=== PATIENT | female | born 1970 | race Caucasian/White ===

== ENCOUNTER 2018-02-02 10:07 | Emergency (ER) | payer MEDICARE, MEDICAID | END 2018-02-02 11:24 | disposition home or self-care (01) | LOC: ERS 10:07 | DX: L03.115 Cellulitis of right lower limb (principal); L03.116 Cellulitis of left lower limb; Z71.6 Tobacco abuse counseling; E11.9 Type 2 diabetes mellitus without complications; I10 Essential (primary) hypertension; J45.909 Unspecified asthma, uncomplicated; F31.9 Bipolar disorder, unspecified; F25.9 Schizoaffective disorder, unspecified; F17.210 Nicotine dependence, cigarettes, uncomplicated | CPT/HCPCS: 99406 ==

== ENCOUNTER 2018-02-02 20:51 | Emergency (ER) | payer MEDICARE, MEDICAID | END 2018-02-02 21:26 | disposition home or self-care (01) | LOC: ERS 20:51 | DX: F41.9 Anxiety disorder, unspecified (principal); F15.10 Other stimulant abuse, uncomplicated; L03.115 Cellulitis of right lower limb; E11.9 Type 2 diabetes mellitus without complications; I10 Essential (primary) hypertension; J45.909 Unspecified asthma, uncomplicated; F31.9 Bipolar disorder, unspecified; F25.9 Schizoaffective disorder, unspecified; F17.210 Nicotine dependence, cigarettes, uncomplicated; Z79.899 Other long term (current) drug therapy | CPT/HCPCS: 93005 ==

== ENCOUNTER 2018-02-04 15:14 | Inpatient (IN) | payer MEDICARE, MEDICAID ==
[2018-02-04] MEDS ORDERED: Piperacillin/Tazobactam 4.5 GM VIAL ONE (15:50)
[2018-02-04] MEDS ORDERED: Sodium Chloride 0.9% 100 ML ONE (15:50)
[2018-02-04 15:58] LABS: Actual Bicarbonate (HCO3a) 23.5 mEq/L (22-28); Analyzer IN Cardio ER; Base Excess (BEa) -0.7 mEq/L (-2.0 to +3.0); CO2 Tension 37.2 mmHg (35.0-45.0); Calcium, Ionized 1.06 mmol/L (1.12-1.30); Carboxyhemoglobin (COHb) 1.1 gm% (0.0-3.0); Hemoglobin (Hb) 11.5 g/dL (12.0-16.0); Potassium - ABG Lab 3.45 mmol/L (3.70-5.30); pH, Arterial 7.42 (7.35-7.45)
[2018-02-04 16:11] LABS: #Lymphocytes 1.3 thou/uL (1.20-3.40); #Monocytes 0.4 thou/uL (0.11-0.59); #Neutrophils 13.8 thou/uL (1.40-6.50); %Basophils 0.1 % (0.0-1.0); %Eosinophils 0.1 % (0.0-10.0); %Lymphocytes 8.5 % (21.0-51.0); %Monocytes 2.3 % (0.0-10.0); Mean Corpuscular HGB CONC 32.5 g/dL (32.0-36.0); Mean Corpuscular Hemoglobin 28.8 pg (27.0-31.0); Mean Corpuscular Volume 88.7 fL (78.0-98.0); Mean Platelet Volume 8.5 fL (7.4-10.4); Platelet Count 226 thou/uL (130-400); RBC Distribution Width 13.8 % (11.5-14.5); Red Blood Cell (RBC) Count 3.82 mill/uL (4.20-5.40); White Blood Cell (WBC) Count 15.6 thou/uL (4.8-10.8)
[2018-02-04 16:34] LABS: ALT (SGPT) 43 U/L (8-55); AST (SGOT) 62 U/L (5-34); Alkaline Phosphatase 88 U/L (40-150); Anion Gap 11 mmol/L (10-20); BUN (Urea Nitrogen) 12 mg/dL (7.0-18.7); Bilirubin, Total 0.5 mg/dL (0.2-1.2); Calc. Creatinine Clearance 0 mL/min (70-130); Calcium 8.1 mg/dL (7.8-10.44); Carbon Dioxide 23 mmol/L (22-29); Chloride 107 mmol/L (98-107); Estimated GFR-MDRD 67; Glucose 129 mg/dL (70-105); Potassium 3.6 mmol/L (3.5-5.1); Sodium 137 mmol/L (136-145)
--- NOTE | 2018-02-04 16:40 | RAD ---
CHEST ONE VIEW: 02/04/18 HISTORY: Dyspnea. FINDINGS: No comparison. Right margin of the cardiac silhouette is predominantly obscured by parenchymal opacity that may repr esent a collapsed right lower lobe. Lung markings are not well seen along the lateral aspect of the r ight lower chest. Left lung is somewhat hyperinflated. The engine monitor leads overlie the chest. IMPRESSION: Right lower lobe collapse. Cause not evident. Possible right pneumothorax. Left lateral decubitus views pending for further evaluation. Findings were called to Dr. Rodriguez in the Emergency Department at 1624 hours. Code CR POS: [facility]
[2018-02-04] MEDS ORDERED: ISOVUE-370 76%-LOCM 1 ML ONE (17:03)
--- NOTE | 2018-02-04 17:18 | RAD ---
SINGLE VIEW CHEST LEFT LATERAL DECUBITUS VIEWS 02/04/18 CLINICAL HISTORY: History of dyspnea. Abnormality on preceding chest radiograph. FINDINGS: Decubitus view in a left lateral position does not reveal evidence of a right sided pneumothorax. The re is patchy density at the right lower lung zone. Left lung is incompletely assessed on the basis of this exam. There is accentuation of the cardiomediastinal silhouette and of the pulmonary vasculatur e due to positioning. IMPRESSION: No discrete right pneumothorax. Right basilar patchy opacity which may relate to atelectasis or pneumonia. Recommend continued follow up. POS: [facility]
[2018-02-04 17:21] LABS: O2 Tension (PaO2) 53.8 mmHg (80.0-100.0); Puncture Site LRA
[2018-02-04 17:49] LABS: Bilirubin Small (Negative); Blood, Urine Negative (Negative); Clarity CLEAR (Clear); Glucose, Urine (Dipstick) Negative (Negative); Leukocyte Small (Negative); Nitrite Negative (Negative); Protein, Urine (Dipstick) 30 mg/dL (Neg-Trace); Specific Gravity, Urine 1.025 (1.002-1.036)
[2018-02-04 17:52] LABS: Bacteria/HPF None Seen HPF (None Seen); Hyaline Casts/LPF 4-6 HYALINE CAST LPF (0-3 Hyaline); Pathc Cast-AUWi Flag 1.45 (0-2.49); RBC/HPF 0-3 HPF (0-3)
[2018-02-04] MEDS ORDERED: Norepinephrine 8 MG/0.9% NS 250 ML ONE (18:39)
[2018-02-04] MEDS ORDERED: Water For Inject, Bacteriostat 30 ML ONE (18:39)
--- NOTE | 2018-02-04 19:14 | RAD ---
SINGLE VIEW OF THE CHEST: 02/04/18 COMPARISON: 02/04/18 HISTORY: Central line placement. FINDINGS: Single view of the chest shows a normal sized cardiomediastinal silhouette. A right IJ central venous catheter is seen with its tip at the atriocaval junction. There is opacity in the inferior aspect of the right thorax which could represent atelectasis of the right lower lobe. No pneumothorax is seen. IMPRESSION: 1. Status post central line placement without evidence of complication. 2. Right basilar atelectasis versus pleural effusion. POS: [facility]
[2018-02-04] MEDS ORDERED: Midazolam HCl 5 mg/ml Vial ONE (19:19)
[2018-02-04] MEDS ORDERED: Acetaminophen 650 MG Suppository PR PRN (19:19)
[2018-02-04] MEDS ORDERED: Norepinephrine 8 MG/0.9% NS 250 ML IVPB PRN (19:21)
[2018-02-04] MEDS ORDERED: CCU Electrolyte Replacement 1 EACH IVPB SCH (19:21)
[2018-02-04 19:26] LABS: Amphetamine Not Detected (NotDetected); Barbiturates Screen Not Detected (NotDetected); Benzodiazepine Screen Not Detected (NotDetected); Cocaine Metabolite Screen Not Detected (NotDetected); Medtox Control Line Valid? VALID (VALID); Medtox Reader # READER 4; Methadone Not Detected (NotDetected); Methamphetamine Not Detected (NotDetected); Opiate Screen Not Detected (NotDetected); Oxycodone Screen Not Detected (NotDetected); Phencyclidine (PCP) Not Detected (NotDetected); THC/Cannabinoid Screen Not Detected (NotDetected); Tricyclic Screen Not Detected (NotDetected)
[2018-02-04] MEDS ORDERED: Ventilator Sedation Protocol 1 EACH FS SCH (19:30)
[2018-02-04] MEDS ORDERED: Sodium Chloride 0.9% 2,000 ML IV SCH (19:30)
--- NOTE | 2018-02-04 19:48 | CT ---
CT OF THE BRAIN WITHOUT CONTRAST: 02/04/18 COMPARISON: None. TECHNIQUE: Multiple contiguous axial images were obtained in a CT of the brain without contrast. FINDINGS: The brain is normal in morphology and attenuation without focal lesions or confluent areas of infarct ion. There is no evidence of hydrocephalus, intracranial hemorrhage, or extra-axial fluid collections . The calvarium and overlying soft tissues are unremarkable. The visualized paranasal sinuses and masto id air cells are well aerated. IMPRESSION: No evidence of acute intracranial abnormality. POS: [facility]
[2018-02-04] MEDS ORDERED: Morphine 2 MG/ML SYRINGE SLOW IVP PRN (19:51)
[2018-02-04] MEDS ORDERED: DISCONTINUE PREVIOUS NARCOTIC PAIN MEDICATIONS AND BENZODIAZEPINES FS SCH (19:51)
[2018-02-04] MEDS ORDERED: Fentanyl BOLUS 250 ML IVPB PRN (19:51)
[2018-02-04] MEDS ORDERED: Propofol BOLUS 1,000 MG/100 ML VIAL IV PRN (19:51)
[2018-02-04] MEDS ORDERED: Magnesium Oxide 400 MG TAB PO PRN ×2 (19:52)
[2018-02-04] MEDS ORDERED: CCU ELECTROLYTE REPLACEMENT PROTOCOL FS PRN (19:52)
[2018-02-04] MEDS ORDERED: Potassium Phosphate 9 MMOL in Sodium Chloride 0.9% 100 ML IVPB PRN (19:52)
[2018-02-04] MEDS ORDERED: Potassium Phosphate 12 MMOL in Sodium Chloride 0.9% 250 ML 250 ML IV PRN (19:52)
[2018-02-04] MEDS ORDERED: Potassium Chloride 40 MEQ in Premix Bag 1 BAG IVPB PRN (19:52)
[2018-02-04] MEDS ORDERED: Potassium Phosphate 15 MMOL in Sodium Chloride 0.9% 250 ML 250 ML IV PRN (19:52)
[2018-02-04] MEDS ORDERED: Potassium Chloride 20 MEQ TAB PO PRN (19:52)
[2018-02-04] MEDS ORDERED: Magnesium 2 GM/NS 0.9% 100 ML 2 GM in Premix Bag 1 BAG IVPB PRN (19:52)
[2018-02-04] MEDS ORDERED: Potassium Chloride 40 MEQ in Sodium Chloride 0.9% 250 ML 250 ML IVPB PRN (19:52)
--- NOTE | 2018-02-04 20:18 | CT ---
CTA OF THE CHEST WITH CONTRAST: 02/04/18 COMPARISON: None. HISTORY: Bodyaches and fever for two days. History of drug use. TECHNIQUE: Multiple contiguous axial images were obtained in a CTA of the chest with contrast for pulmonary embo lis protocol. 3D oblique MIP reformats and direct coronal reformats were performed. IMPRESSION: The pulmonary arteries are well opacified without filling defects to suggest pulmonary emboli. The h eart is normal in size. No hilar or mediastinal lymphadenopathy are seen. Consolidation is seen in the right middle and lower lobes. No pleural effusion is seen. Air space opa cities are also seen in the right upper lobe. The patient is status post cholecystectomy. The visuali zed subdiaphragmatic structures are unremarkable. Degenerative changes are seen in the spine. The vis ualized chest wall soft tissues are unremarkable. IMPRESSION: 1. No evidence of pulmonary thromboembolism. 2. Multifocal right sided pneumonia. POS: [facility]
[2018-02-04 20:34] LABS: Actual Bicarbonate (HCO3a) 22.4 mEq/L (22-28); Analyzer IN Cardio ER; Base Excess (BEa) -3.2 mEq/L (-2.0 to +3.0); CO2 Tension 42.4 mmHg (35.0-45.0); Calcium, Ionized 1.05 mmol/L (1.12-1.30); Carboxyhemoglobin (COHb) 0.5 gm% (0.0-3.0); Hemoglobin (Hb) 11.6 g/dL (12.0-16.0); O2 Tension (PaO2) 73.7 mmHg (80.0-100.0); Potassium - ABG Lab 3.52 mmol/L (3.70-5.30); pH, Arterial 7.34 (7.35-7.45)
[2018-02-04 20:39] LABS: Puncture Site RRA
--- NOTE | 2018-02-04 20:52 | RAD ---
PORTABLE CHEST ONE VIEW: 02/04/18 HISTORY: 47-year-old female with history of sepsis. Right jugulovenous catheter in place with the tip extending into the distal superior vena cava. Endot jenise tube is in place in satisfactory position with the tip above the level of the [place]. Abnorma l opacity changes within the right mid and lower lung zones with some confluence and what appears to be some right sided volume loss. Patchy increased markings in the left chest. No evidence for pneumot horax. IMPRESSION: Abnormal opacity changes in the right chest with some volume loss. Pneumonia and/or atelectasis are c ertainly considered. Bilateral vascular congestion. Continued short term followup. POS: [facility]
--- NOTE | 2018-02-04 21:05 | HP ---
PRIMARY CARE PHYSICIAN: Unknown. CHIEF COMPLAINT: "Couldn't get out of bed." HISTORY OF PRESENT ILLNESS: This is a 47-year-old female with history of hypertension, GERD, fibromyalgia, mental health disorder per chart review of bipolar and schizoaffective disorders, methamphetamine use with last use approximately reported as 3 weeks ago, who presents to the emergency room complaining that she felt weak. The patient reports that today she had pain everywhere, denies any precipitating factors or relieving factors. She reports over the past couple of weeks that she has been coughing productive of a white fluid. She denies any nausea, vomiting, fever, chills, diarrhea, or urine changes. She was seen in the emergency room 2 days ago with the concern for possible methamphetamine withdrawal. Per the chart review, she stopped using methamphetamine about 3 weeks ago and she had been experiencing fear and anxiety. The patient had been seen in the emergency room also for possible skin infection, where antibiotics were prescribed but not filled. When asked further about the history, the patient requested that I stopped asking her any further questions. All remaining history is unobtainable. The patient is febrile, hypotensive in the emergency room with an abnormal chest x-ray, diagnosed with septic shock secondary to pneumonia. She has received 2 L of normal saline, 750 mg of Levaquin, 1 g of vancomycin, 4.5 g of Zosyn, and hospitalist called for admission. The emergency room doctor talked with Pulmonology on-call, who also requested 40 mg of methylprednisolone. ALLERGIES: NO KNOWN DRUG ALLERGIES. CURRENT MEDICATIONS: Unobtainable from the patient. Per chart review; 1. Amlodipine. 2. Gabapentin. 3. Omeprazole. 4. Clonazepam. 5. Ibuprofen. 6. Olanzapine. 7. Tramadol. 8. Losartan. However, I am unable to verify these. PAST SURGICAL HISTORY: Per chart review; 1. Cholecystectomy. 2. . 3. Facial reconstruction. 4. Hysterectomy. PAST MEDICAL HISTORY - Per chart review: 1. Hypertension 2. Fibromyalgia 3. Mental health disorders - listed as bipolar disorder and schizoaffective disorder 4. Per ER physician - DVT 5. Asthma 6. methamphetamine use SOCIAL HISTORY: The patient lives in a homeless fpc here in [place]. She reports her dad Magdy Lyons in [place], phone #[phone]. He is her surrogate decision maker. She uses tobacco one-half per day. Denies any alcohol, and reports she last smoked methamphetamine 3 weeks ago. REVIEW OF SYSTEMS: Unobtainable and only as noted above. PHYSICAL EXAMINATION: MOST RECENT VITAL SIGNS: Blood pressure 86/65, pulse 98, respirations 18, sats 97% on face mask. GENERAL: The patient will open her eyes. She appears agitated, she is not in acute distress. HEENT: Her pupils are equal and round. Tympanic membranes are translucent. Oral mucosa is dry and pink. NECK: Supple, nontender. LYMPHATICS: No palpable cervical or supraclavicular lymphadenopathy. LUNGS: Clear to auscultation. Fair air movement. No audible wheezing, rhonchi , or rales. HEART: Normal S1 and S2. Regular rate and rhythm. No audible murmurs. ABDOMEN: Soft with present bowel sounds. Nontender, nondistended. EXTREMITIES: No pitting edema, clubbing, or cyanosis. SKIN: Multiple areas of hypopigmentation, some erythematous macules along her arms that she reports are all consistent with a prior history of scarring. PSYCHIATRIC: The patient's affect is blunted, she is intermittently requesting not to ask questions in a raised voice. Answering simple questions. LABORATORY DATA: CBC; white count 15.6, hemoglobin 11.0, hematocrit 33.8, platelets 226 with 89% neutrophils, 8.5% lymphocytes. ABG; pH of 7.42, pCO2 of 37, pO2 of 53, base excess -0.7 with a sat 88%, this is on 32% oxygen. Renal panel; sodium 137, potassium 3.6, chloride 107, bicarbonate 23, BUN 12, creatinine 0.9, glucose 129. AST 62, ALT 43, alkaline phosphatase 88. Total protein 6, albumin 3. Troponin 0.013. Urinalysis; small leukocyte esterase, 7 to 10 white blood cells, 4 to 6 squamous , 4 to 6 hyaline casts. Chest x-ray performed today shows central line placement, right basilar atelectasis versus pleural effusion with an opacity in the inferior aspect of the right thorax. Earlier chest x-ray shows no discrete pneumothorax. Right basilar patchy opacity, which may be atelectasis or pneumonia. Prior to this, chest x-ray showed right lower lobe collapse, possible pneumothorax with recommendation for a decubitus view. IMPRESSION: 1. Septic shock secondary to pneumonia. 2. History of methamphetamine use. 3. History of hypertension, currently hypotensive. 4. History of mental health disorders, unknown control. 5. History of fibromyalgia. PLAN: 1. Given the patient's ABG, appearance of x-ray, persistence of hypotension, recommend intubation. I reviewed this with the patient, who is tearful at first stating her mom after being intubated, however, the patient does not wish to and she does agree to intubation. I am concerned that within the next 12 hours that her condition is going to decompensate, which would be the middle of the night. The emergency room physician has agreed to intubate. Given the acute respiratory failure, with a report by the ER physician has a history of DVT, we will obtain a CT angiogram of the chest. 2. Continuing IV fluids, we will obtain a CVP to monitor progress as well as check in's and out's. Will order a 3rd liter of NS and then maintenance fluids. 3. Continuing broad-spectrum antibiotics with Levaquin, vancomycin and Zosyn. 4. Pressor support if needed. 5. Monitoring her renal function. 6. Contact will need to be made with the patient's father with the number listed above, who is her surrogate decision maker. 7. DVT prophylaxis with enoxaparin. 8. GI prophylaxis with famotidine. 9. Code status is full. Confirmed with the patient. 10. The patient is at high risk given age, comorbidities, and current presentation. Discussed with the patient concern of decompensation, the need for additional support, broad-spectrum antibiotics, and the plan of care. There were no questions or further needs at the end of evaluation. Job ID: [id number] [facility]
[2018-02-04] MEDS ORDERED: Propofol 1,000 MG/100 ML VIAL IV ONE (21:10)
[2018-02-04] MEDS ORDERED: Acetaminophen 650 MG in Premix Bag 1 BAG IVPB PRN (21:21)
[2018-02-04] MEDS ORDERED: Morphine 4 MG/ML VIAL ONE (22:04)
[2018-02-04] MEDS ORDERED: Lorazepam 2 MG/ML VIAL ONE (22:09)
--- NOTE | 2018-02-05 00:01 | RAD ---
KUB: 02/04/18 COMPARISON: None. HISTORY: NG tube placement. FINDINGS: A single view of the upper abdomen shows a nonspecific, nonobstructive bowel gas pattern. An NG tube is seen in the left upper quadrant of the abdomen, likely within the stomach. An inferior vena cava f ilter is seen. Cholecystectomy clips are seen. IMPRESSION: NG tube located in the stomach. POS: [facility]
[2018-02-05] MEDS: Famotidine/PF 20 mg/2ml Vial SLOW IVP SCH ×3 (00:31→21:20)
[2018-02-05] MEDS: Sodium Chloride 0.9% 1,000 ML IV SCH ×3 (00:41→11:55)
[2018-02-05] MEDS: Piperacillin/Tazobactam 3.375 GM in Sodium Chloride 0.9% 100 ML IVPB SCH ×4 (00:42→18:11)
[2018-02-05] MEDS: Propofol 1,000 MG/100 ML VIAL IV PRN ×4 (00:42→18:12)
[2018-02-05] MEDS: fentaNYL Citrate/PF 2,000 MCG in Sodium Chloride 0.9% 60 ML IV SCH ×2 (04:31→14:35)
[2018-02-05] MEDS: Vancomycin HCl 1 GM in Premix Bag 1 BAG IVPB SCH ×2 (05:14→17:32)
[2018-02-05 05:22] LABS: #Lymphocytes 0.7 thou/uL (1.20-3.40); #Monocytes 0.1 thou/uL (0.11-0.59); #Neutrophils 12.7 thou/uL (1.40-6.50); %Basophils 0.3 % (0.0-1.0); %Eosinophils 0.2 % (0.0-10.0); %Lymphocytes 5.2 % (21.0-51.0); %Neutrophils 93.5 % (42.0-75.0); Hemoglobin 10.7 g/dL (12.0-16.0); Mean Corpuscular HGB CONC 32.6 g/dL (32.0-36.0); Mean Corpuscular Hemoglobin 28.7 pg (27.0-31.0); Mean Corpuscular Volume 88.1 fL (78.0-98.0); Mean Platelet Volume 8.4 fL (7.4-10.4); Platelet Count 241 thou/uL (130-400); RBC Distribution Width 13.7 % (11.5-14.5); Red Blood Cell (RBC) Count 3.73 mill/uL (4.20-5.40); White Blood Cell (WBC) Count 13.6 thou/uL (4.8-10.8)
[2018-02-05 05:49] LABS: Anion Gap 12 mmol/L (10-20); BUN (Urea Nitrogen) 11 mg/dL (7.0-18.7); Calc. Creatinine Clearance 137 mL/min (70-130); Calcium 8.1 mg/dL (7.8-10.44); Carbon Dioxide 22 mmol/L (22-29); Chloride 112 mmol/L (98-107); Estimated GFR-MDRD 76; Glucose 184 mg/dL (70-105); Potassium 3.8 mmol/L (3.5-5.1); Sodium 142 mmol/L (136-145)
[2018-02-05 07:02] LABS: Actual Bicarbonate (HCO3a) 20.8 mEq/L (22-28); Base Excess (BEa) -3.2 mEq/L (-2.0 to +3.0); CO2 Tension 33.3 mmHg (35.0-45.0); Calcium, Ionized 1.09 mmol/L (1.12-1.30); Carboxyhemoglobin (COHb) 1.1 gm% (0.0-3.0); Hemoglobin (Hb) 10.8 g/dL (12.0-16.0); O2 Tension (PaO2) 92.3 mmHg (80.0-100.0); Potassium - ABG Lab 3.85 mmol/L (3.70-5.30); pH, Arterial 7.41 (7.35-7.45)
[2018-02-05 07:17] LABS: ALV-art Gradient 293.875 (0-20); Puncture Site RRA
--- NOTE | 2018-02-05 08:02 | RAD ---
CHEST 1 VIEW: HISTORY: A 47-year-old female with a history of respiratory insufficiency. COMPARISON: 02/04/2018. FINDINGS: Right-sided central line, endotracheal tube, and NG tubes are in place. The tip of the NG tube appea rs to extend just to the level of the upper stomach. The side hole appears to be above the level of the diaphragm and for more optimal positioning, this could be advanced. It appears to have been pull ed out some when compared to the prior KUB study of 02/04/2018. Persistent abnormal opacity changes in the right mid and lower chest with what appears to be some volume loss. There is also now some ne w abnormality opacity in the right costophrenic angle suggesting some developing right pleural effusi on. IMPRESSION: Nasogastric tube appears to have been pulled out somewhat when compared to the prior KUB study and sh ould probably be readvanced so that the side hole completely enters the stomach. Abnormal opacity ch anges in the right mid and lower lung zone with some minimal volume loss and what appears to be some developing right pleural effusion. Minimal linear parenchymal changes in the left chest, evidence fo r some subsegmental atelectasis. Continued short-term followup. POS: [facility]
[2018-02-05] MEDS: Lorazepam 2 MG/ML VIAL SLOW IVP PRN ×3 (08:04→17:39)
[2018-02-05] MEDS: Enoxaparin Sodium 40 MG/0.4 ML SYRINGE SC SCH (09:18)
[2018-02-05] MEDS: OLANZapine 5 MG TAB PO SCH ×2 (09:20→21:20)
[2018-02-05] MEDS: Gabapentin 300 MG CAP PO SCH ×3 (09:25→21:20)
[2018-02-05] MEDS: clonazePAM 1 MG TAB PO SCH ×2 (09:44→21:20)
[2018-02-05] MEDS ORDERED: Dextrose 50% Abboject 50 ML SYRINGE SLOW IVP PRN (09:59)
[2018-02-05] MEDS ORDERED: Dextrose 5% in Water 1,000 ML IV PRN (09:59)
--- NOTE | 2018-02-05 10:01 | PDOC.PN ---
- Subjective Encounter Start Date: 02/05/18 (f/u septic shock) Encounter Start Time: 10:00 Subjective: Pt remained on the vent overnight. Remains on pressor support, good urine -: output. no overnight events - Objective Resuscitation Status - Order Detail: 02/04/18 19:19 Resuscitation Status Routine Resuscitation Status: FULL: Full Resuscitation Discussed with: confirmed with patient Vital Signs & Weight: Vital Signs (12 hours) Temp Pulse Resp BP Pulse Ox 02/05/18 08:00 98.6 F 14 97 02/05/18 06:25 83 125/77 02/05/18 06:00 20 02/05/18 04:00 98.6 F 20 02/05/18 02:24 79 02/05/18 02:00 20 02/05/18 00:33 20 02/05/18 00:30 85 02/05/18 00:00 99.3 F 20 100 Weight Weight 225 lb 4.999 oz Most Recent Monitor Data Heart Rate from ECG 73 NIBP 109/67 NIBP BP-Mean 81 Respiration from ECG 10 SpO2 95 I&O: 02/04/18 02/05/18 02/06/18 06:59 06:59 06:59 Intake Total 960 Output Total 4346 495 Balance -1115 -495 Result Diagrams: 02/05/18 05:16 02/05/18 05:16 EKG Reviewed by me: Yes (sinus 70's) Phys Exam - Physical Examination Constitutional: NAD intubated and sedated Respiratory: no wheezing, no rales, no rhonchi decreased breath sounds at right base Cardiovascular: RRR, no significant murmur Gastrointestinal: soft, non-tender, no distention, positive bowel sounds no pitting edema, some non pitting edema in hands/legs no spontaneous movement Deviation from normal: unable to assess Deviation from normal: faint erythema distal RLE. Multiple areas of hypopigmentation -: of arms/legs and some erythematous macules arms/legs - unchanged Dx/Plan (1) Acute respiratory failure with hypoxia Code(s): J96.01 - ACUTE RESPIRATORY FAILURE WITH HYPOXIA Status: Acute (2) Septic shock Code(s): A41.9 - SEPSIS, UNSPECIFIED ORGANISM; R65.21 - SEVERE SEPSIS WITH SEPTIC SHOCK Status: Acute (3) Pneumonia Code(s): J18.9 - PNEUMONIA, UNSPECIFIED ORGANISM Status: Acute Qualifiers: Pneumonia type: due to unspecified organism Laterality: right Lung location: unspecified part of lung Qualified Code(s): J18.9 - Pneumonia, unspecified organism (4) Hypertension Code(s): I10 - ESSENTIAL (PRIMARY) HYPERTENSION Status: Chronic Qualifiers: Hypertension type: essential hypertension Qualified Code(s): I10 - Essential (primary) hypertension (5) Diabetes mellitus Code(s): E11.9 - TYPE 2 DIABETES MELLITUS WITHOUT COMPLICATIONS Status: Chronic Qualifiers: Diabetes mellitus type: type 2 (6) Mood disorder Code(s): F39 - UNSPECIFIED MOOD [AFFECTIVE] DISORDER Status: Chronic - Plan * Appreciate Pulm consult - on vent, pressor support, broad spectrum abx * Reviewed CXR and NG tube needs to be advanced further - accomplished by RN's * lower maintenance IVF rate due to additional fluids pt is receiving. Tube feeds to start later today * monitor blood cx * RN's to contact pt's Dad - surrogate decision maker for his awareness of status * prn ISS to manage blood sugars with goal 140-180 * repeat CXR to confirm placement of NGT * * dvt prophy - lovenox * gi prophy - famotidine * pt remains at high risk in current condition. * * 21:32 - Reviewed orders and will request pharmacy to dose Vancomycin - discussed with inpatient pharmacist.
--- NOTE | 2018-02-05 13:26 | RAD ---
KUB: Comparison: 02-04-18 History: NG tube advancement. FINDINGS: Single view of the abdomen shows an NG tube still in the midline of the abdomen, likely within the st omach. This is similar to yesterday's radiograph. Cholecystectomy clips are seen. Venocaval filter is present. There is a nonobstructed bowel gas pattern. IMPRESSION: NG tube located in the stomach. POS: [facility]
--- NOTE | 2018-02-05 15:01 | CON ---
DATE OF CONSULTATION: HISTORY OF PRESENT ILLNESS: Carlita Lam is a 47-year-old homeless female, who was brought to the ER yesterday evening. Dr. Rodriguez, the ER physician and Dr. Case spoke to me yesterday at 7 o'clock, she looked like she had pneumonia, worsening respiratory status, confusion. She looked poor. She was intubated and transferred to the ICU. Initial sats were 96% on face mask. Blood pressure was low at 96/65, respiratory rate 24, temperature 98. She was given 3 L of IV fluids in the ER. She was given Levaquin, vancomycin, Zosyn and 40 of Solu-Medrol. She remains agitated on the vent with Diprivan and fentanyl on board. History in the ER noted. PAST MEDICAL HISTORY: Pertinent for apparently diabetes, hypertension, asthma. fibromyalgia. PAST SURGICAL HISTORY: Previous surgeries included facial reconstructive surgery, cholecystectomy, , hysterectomy, subdural, history of bipolar schizoaffective disorder, history of previous substance abuse including cocaine and opiates, though drug screen was negative here. She has a history of alcohol abuse, history of previous meth abuse. MEDICATIONS: There is a list of medicine presumably got from the patient on arrival: 1. Amlodipine 5. 2. Gabapentin 300. 3. Omeprazole 40. 4. Clonazepam 1 mg two times a day. 5. Ibuprofen. 6. Olanzapine 5 mg. 7. Tramadol. 8. Losartan. ALLERGIES: APPARENTLY NONE. REVIEW OF SYSTEMS: Not obtainable, intubated on the vent. PHYSICAL EXAMINATION: VITAL SIGNS: Pulse 75, sats 97%, respiratory rate 14, blood pressure 120/82. CHEST: Decreased breath sounds. No wheezing. CARDIAC: Normal S1 and S2. No gallops. ABDOMEN: No masses. LABORATORY DATA: White count 13,000, H and H 10 and 32, platelet count is 241. PO2 is 92, pCO2 is 33, pH 7.41, 60% on a rate of 20. Lytes are normal. Drug screen was negative. Influenza was negative. Chest x-ray shows now large right-sided pleural effusion. CT chest done in the ER at 6:30 a.m. shows no evidence of pulmonary emboli, multifocal right-sided pneumonia. IMPRESSION: 1. Respiratory failure. 2. Right-sided pneumonia with parapneumonic effusion. 3. History of substance abuse. The drug screen is negative. 4. Alcohol abuse. I am going to reinstitute most of the psych medicine including clonazepam, gabapentin, olanzapine. Since she remains agitated on high-dose Diprivan and fentanyl, I suggest we switch over to Versed. We will start nutrition and PT. This is a 45-minute critical care time. Please note, she will undergo thoracentesis when she is stabilized. Job ID: [id number]
[2018-02-05] MEDS: Insulin Regular 300 UNITS/3 ML VIAL SC PRN (18:00)
[2018-02-06] MEDS: Propofol 1,000 MG/100 ML VIAL IV PRN ×2 (00:05→05:14)
[2018-02-06] MEDS: Piperacillin/Tazobactam 3.375 GM in Sodium Chloride 0.9% 100 ML IVPB SCH ×5 (00:05→23:42)
[2018-02-06] MEDS: Insulin Regular 300 UNITS/3 ML VIAL SC PRN ×2 (00:19→06:25)
[2018-02-06] MEDS: fentaNYL Citrate/PF 2,000 MCG in Sodium Chloride 0.9% 60 ML IV SCH (03:24)
[2018-02-06 05:20] LABS: #Lymphocytes 1.1 thou/uL (1.20-3.40); #Monocytes 0.5 thou/uL (0.11-0.59); #Neutrophils 10.8 thou/uL (1.40-6.50); %Eosinophils 0.2 % (0.0-10.0); %Lymphocytes 9.2 % (21.0-51.0); %Monocytes 4.2 % (0.0-10.0); %Neutrophils 86.5 % (42.0-75.0); Hemoglobin 9.7 g/dL (12.0-16.0); Mean Corpuscular HGB CONC 32.5 g/dL (32.0-36.0); Mean Corpuscular Hemoglobin 28.8 pg (27.0-31.0); Mean Corpuscular Volume 88.7 fL (78.0-98.0); Mean Platelet Volume 8.3 fL (7.4-10.4); Platelet Count 241 thou/uL (130-400); RBC Distribution Width 13.7 % (11.5-14.5); Red Blood Cell (RBC) Count 3.37 mill/uL (4.20-5.40); White Blood Cell (WBC) Count 12.5 thou/uL (4.8-10.8)
[2018-02-06 05:36] LABS: Vancomycin, Trough 11.2 ug/mL
[2018-02-06 05:41] LABS: Anion Gap 10 mmol/L (10-20); BUN (Urea Nitrogen) 12 mg/dL (7.0-18.7); Calc. Creatinine Clearance 144 mL/min (70-130); Calcium 8.3 mg/dL (7.8-10.44); Carbon Dioxide 23 mmol/L (22-29); Chloride 112 mmol/L (98-107); Estimated GFR-MDRD 81; Glucose 166 mg/dL (70-105); Potassium 4.4 mmol/L (3.5-5.1); Sodium 141 mmol/L (136-145)
[2018-02-06] MEDS ORDERED: Vancomycin HCl 1.5 GM in Sodium Chloride 0.9% 250 ML 300 ML IVPB SCH (06:00)
[2018-02-06] MEDS: Sodium Chloride 0.9% 1,000 ML IV SCH (06:22)
[2018-02-06] MEDS: Vancomycin HCl 1 GM in Premix Bag 1 BAG IVPB SCH (06:25)
[2018-02-06] MEDS ORDERED: Furosemide 40 MG/4 ML VIAL ONE (08:49)
[2018-02-06] MEDS: clonazePAM 1 MG TAB PO SCH ×2 (08:51→20:31)
[2018-02-06] MEDS: Enoxaparin Sodium 40 MG/0.4 ML SYRINGE SC SCH (08:51)
[2018-02-06] MEDS: Famotidine/PF 20 mg/2ml Vial SLOW IVP SCH ×2 (08:52→20:31)
[2018-02-06] MEDS: OLANZapine 5 MG TAB PO SCH ×2 (08:52→20:35)
[2018-02-06] MEDS: Gabapentin 300 MG CAP PO SCH ×3 (08:52→20:31)
[2018-02-06] MEDS ORDERED: Furosemide 20 MG/2 ML VIAL SLOW IVP SCH ×2 (09:00→15:00)
--- NOTE | 2018-02-06 09:23 | PRG ---
DATE OF SERVICE: 02/06/2018 SERVICE: Pulmonary Medicine. INTERVAL HISTORY: The patient did really well overnight. She has been maintained on mechanical ventilation. There were no significant overnight events. We are in the middle of a sedation holiday to see whether or not, her mentation allows for spontaneous breathing trial. Otherwise, there has been no change in her condition. PHYSICAL EXAMINATION: VITAL SIGNS: Afebrile, pulse 66, blood pressure 113/76, respirations 14, saturation 99% on 40% FiO2 and a PEEP of 5. GENERAL: The patient is intubated and sedated. HEENT: Normocephalic, atraumatic. Sclerae white. Conjunctivae pink. Oral mucosa is moist without lesions. LUNGS: Excellent air entry. There are crackles present. No prolonged expiratory phase or wheezing is appreciated. Rhonchi are also extensive. HEART: Normal rate, regular. ABDOMEN: Soft, nontender, and nondistended. Bowel sounds are positive. MUSCULOSKELETAL: No cyanosis or clubbing. There is 2+ pitting in the bilateral lower extremities. NEUROLOGIC: Grossly nonfocal. LABORATORY DATA: WBC 12.5, hemoglobin 9.7, platelets 241,000. Blood gases, pH 7.41, pCO2 of 33, pO2 of 92.3. Basic metabolic profile is completely unremarkable with a creatinine of 0.76, chloride 112. Urinalysis is essentially unremarkable. Urine drug screen is negative and vancomycin trough is 11.2. Blood cultures x2 are unremarkable. Influenza A and B are negative. IMAGING STUDIES: Chest x-ray demonstrates right-sided pleural effusion. Endotracheal tube is roughly 4 cm above the level of sania. Right IJ is in good position, terminating in the cavoatrial junction. There is a rim of atelectasis that spans across left mid lung zone. ASSESSMENT: 1. Acute hypoxic respiratory failure. 2. Community-acquired pneumonia. 3. Pleural effusion. 4. History of alcohol abuse and drug abuse. DISCUSSION AND PLAN: I will give the patient a sedation holiday. At the end of it, if she tolerates this, we will put her on a spontaneous breathing trial and consider her for extubation if mentation allows for it. If not, we will need to put her back down, and adjust some of her medications and re-attempt. Pulmonary Critical Care will continue to follow along in this location. We will continue other supportive care including antibiotics and nebulized medication. Once she clears her sepsis profile, we will need to start diuresing her touch. Job ID: [id number]
[2018-02-06] MEDS ORDERED: Haloperidol Lactate 5 MG/ML VIAL IM SCH (10:45)
[2018-02-06] MEDS ORDERED: Lorazepam 2 MG/ML VIAL SLOW IVP SCH (10:45)
--- NOTE | 2018-02-06 11:34 | RAD ---
CHEST 1 VIEW: HISTORY: Dyspnea. Intubated. Followup. COMPARISON: 02/05/2018. FINDINGS: Cardiac silhouette is magnified and partially obscured by right pleural fluid and dense right basilar infiltrate that are similar in appearance to the prior study. Pulmonary vasculature remains engorge d with bilateral perihilar and left basilar infiltrates. The patient is rotated rightward. Lines an d tubes appear unchanged in position. shelter monitor leads overlie the chest. IMPRESSION: Right pleural fluid and basilar infiltrate, pulmonary vascular congestion, and other findings appear stable. POS: [facility]
--- NOTE | 2018-02-06 14:12 | PDOC.PN ---
- Subjective Encounter Start Date: 02/06/18 Encounter Start Time: 11:00 Pt seen for followup re; acute hypoxic respiratory failure. Extubated, c/o thirst. - Objective Resuscitation Status - Order Detail: 02/04/18 19:19 Resuscitation Status Routine Resuscitation Status: FULL: Full Resuscitation Discussed with: confirmed with patient MAR Reviewed: Yes Vital Signs & Weight: Vital Signs (12 hours) Temp Pulse Resp BP Pulse Ox 02/06/18 12:00 97.7 F 02/06/18 09:25 91 L 02/06/18 09:15 119 H 19 91 L 02/06/18 08:59 106 H 145/86 H 02/06/18 08:00 98 F 14 02/06/18 06:00 14 02/06/18 04:00 99.1 F 14 02/06/18 02:26 66 Weight Admit Weight 225 lb Weight 235 lb 14.314 oz Most Recent Monitor Data Heart Rate from ECG 103 NIBP 137/102 NIBP BP-Mean 113 Respiration from ECG 18 SpO2 93 I&O: 02/05/18 02/06/18 02/07/18 06:59 06:59 06:59 Intake Total 960 3977.2 239 Output Total 2075 2185 4185 Balance -1115 1792.2 -3946 Result Diagrams: 02/06/18 05:00 02/06/18 05:00 Additional Labs: Accuchecks 02/06/18 02/06/18 02/06/18 12:50 06:25 00:18 POC Glucose 116 H 162 H 183 H 02/05/18 02/05/18 17:59 12:01 POC Glucose 191 H 145 H EKG Reviewed by me: Yes (Tele: NSR) Phys Exam - Physical Examination Obese HEENT: moist MMs, sclera anicteric, oral pharynx no lesions, 2+ tonsils Neck: no nodes, no JVD, supple, full ROM Lavelle crackles Cardiovascular: RRR, no rub S1, s2 Gastrointestinal: soft, non-tender, no distention, positive bowel sounds Neurological: moves all 4 limbs Psychiatric: normal affect Deviation from normal: oriented to person only, not to place or time Dx/Plan (1) Acute respiratory failure with hypoxia Code(s): J96.01 - ACUTE RESPIRATORY FAILURE WITH HYPOXIA Status: Acute Comment: s/p extubation (2) Pneumonia Code(s): J18.9 - PNEUMONIA, UNSPECIFIED ORGANISM Status: Acute Qualifiers: Pneumonia type: due to unspecified organism Laterality: right Lung location: unspecified part of lung Qualified Code(s): J18.9 - Pneumonia, unspecified organism Comment: continue antibiotics as below (3) Diabetes mellitus Code(s): E11.9 - TYPE 2 DIABETES MELLITUS WITHOUT COMPLICATIONS Status: Chronic Qualifiers: Diabetes mellitus type: type 2 Comment: continue accuchecks, insulin sliding scale (4) Hypertension Code(s): I10 - ESSENTIAL (PRIMARY) HYPERTENSION Status: Chronic Qualifiers: Hypertension type: essential hypertension Qualified Code(s): I10 - Essential (primary) hypertension Comment: monitor vital signs, titrate antihypertensives as needed (5) Septic shock Code(s): A41.9 - SEPSIS, UNSPECIFIED ORGANISM; R65.21 - SEVERE SEPSIS WITH SEPTIC SHOCK Status: Resolved - Plan * . Review of Systems - Review of Systems Constitutional: negative: fever, chills, sweats, weakness, malaise Respiratory: negative: Cough, Shortness of Breath, SOB with Excertion, Pleuritic Pain, Wheezing Cardiovascular: negative: chest pain, palpitations, orthopnea, paroxysmal nocturnal dyspnea, edema, light headedness Gastrointestinal: negative: Nausea, Vomiting, Abdominal Pain, Diarrhea, Constipation, Melena, Hematochezia Genitourinary: negative: Dysuria, Frequency, Incontinence, Hematuria, Retention Skin: negative: Rash, Lesions, David, Bruising - Medications/Allergies Allergies/Adverse Reactions: Allergies Allergy/AdvReac Type Severity Reaction Status Date / Time No Known Drug Allergies Allergy Unverified 02/04/18 19:28 Medications: Current Medications Acetaminophen (Tylenol) 650 mg MA Q4H PRN PRN Reason: Headache/Fever/Mild Pain (1-3) Albuterol/Ipratropium (Duoneb) 3 ml NEB [id number] PRN PRN Reason: SOB &/or Wheezing Clonazepam (Klonopin) 1 mg PO BID [facility] Last Admin: 02/06/18 08:51 Dose: 1 mg Dextrose/Water (Dextrose 50%) 25 gm SLOW IVP PRN PRN PRN Reason: Hypoglycemia Enoxaparin Sodium (Lovenox) 40 mg SC 0900 [facility] Last Admin: 02/06/18 08:51 Dose: 40 mg Famotidine (Pepcid) 20 mg SLOW IVP Q12HR [facility] Last Admin: 02/06/18 08:52 Dose: 20 mg Furosemide (Lasix) 20 mg SLOW IVP DAILY [facility] Furosemide (Lasix) 20 mg SLOW IVP 1500 [facility] Stop: 02/06/18 17:00 Gabapentin (Neurontin) 600 mg PO TID [facility] Last Admin: 02/06/18 08:52 Dose: 600 mg Glucagon (Glucagon) 1 mg IM PRN PRN PRN Reason: Hypoglycemia Fentanyl Citrate 2,000 mcg/ (Sodium Chloride) 100 mls @ 0 mls/hr IV INF [facility]; Protocol Stop: 03/06/18 19:29 Last Admin: 02/06/18 03:24 Dose: 100 mls Levofloxacin 750 mg/ Device 150 mls @ 100 mls/hr IVPB Q24HR [facility] Last Admin: 02/05/18 17:26 Dose: 150 mls Norepinephrine Bitartrate (Levophed) 250 mls @ 0 mls/hr IVPB PRN PRN; Protocol PRN Reason: To maintain MAP > 65 Last Admin: 02/05/18 09:57 Dose: 250 mls Piperacillin Sod/Tazobactam (Sod 3.375 gm/ Sodium Chloride) 100 mls @ 200 mls/ hr IVPB Q6HR [facility] Last Admin: 02/06/18 12:35 Dose: 100 mls Fentanyl Citrate (Fentanyl Bolus) 250 mls @ 0 mls/hr IVPB PRN PRN PRN Reason: Breakthrough pain/agitation Stop: 03/06/18 19:51 Potassium Chloride 40 meq/ (Sodium Chloride) 270 mls @ 135 mls/hr IVPB ASDIR PRN PRN Reason: FOR SERUM K+ 2.5 - 3.5 Potassium Chloride 40 meq/ (Device) 100 mls @ 50 mls/hr IVPB ASDIR PRN PRN Reason: FOR SERUM K+ 2.5 - 3.5 Magnesium Sulfate 1 gm/ Sodium (Chloride) 102 mls @ 102 mls/hr IV PRN PRN PRN Reason: MAG LEVEL 1.4 - 2.0 Magnesium Sulfate 2 gm/ Device 100 mls @ 100 mls/hr IVPB ASDIR PRN PRN Reason: MAGNESIUM < 1.4 Potassium Phosphate 9 mmol/ (Sodium Chloride) 103 mls @ 25.75 mls/hr IVPB ASDIR PRN PRN Reason: Phosphate 1.0-1.8 Potassium Phosphate 12 mmol/ (Sodium Chloride) 254 mls @ 63.5 mls/hr IV ASDIR PRN PRN Reason: Serum phosphate 0.5-0.9 Potassium Phosphate 15 mmol/ (Sodium Chloride) 255 mls @ 63.75 mls/hr IV ASDIR PRN PRN Reason: Serum Phos < 0.5 Dextrose/Water (D5w) 1,000 mls @ 0 mls/hr IV .Q0M PRN PRN Reason: Hypoglycemia Insulin Human Regular (Humulin R) 0 units SC .MILD SLIDING SCALE PRN PRN Reason: Mild Correctional Scale Last Admin: 02/06/18 06:25 Dose: 2 unit Magnesium Oxide (Magnesium Oxide) 400 mg PO BIDPRN PRN PRN Reason: FOR SERUM MAG 1.4 - 2.0 Magnesium Oxide (Magnesium Oxide) 800 mg PO PRN PRN PRN Reason: FOR SERUM MAG < 1.4 Methylprednisolone Sodium Succinate (Solu-Medrol) 40 mg IVP DAILY [facility] Last Admin: 02/06/18 09:36 Dose: Not Given Miscellaneous Medication (Ccu Electrolyte Replacement) 1 each IVPB ONE [facility] Stop: 03/06/18 19:22 Miscellaneous Medication (Ventilator Sedation Protocol) 1 each FS ONE [facility] Stop: 03/06/18 19:31 Miscellaneous Medication (Phos-Nak) 1 pkt PO TIDPRN PRN PRN Reason: FOR PHOS LEVEL 1.0 - 1.8 Miscellaneous Medication (Phos-Nak) 2 pkt PO TIDPRN PRN PRN Reason: FOR PHOS LEVEL 0.5 - 1.0 Discontinue Previous Narcotic Pain Medications And Benzodiazepines 1 each FS .ONE [facility] Stop: 03/06/18 19:51 Ccu Electrolyte (Replacement Protocol) 0 each FS PRN PRN PRN Reason: FOR ELECTROLYTE REPLACEMENT Olanzapine (Zyprexa) 5 mg PO BID [facility] Last Admin: 02/06/18 08:52 Dose: 5 mg Potassium Chloride (K-Dur) 40 meq PO ASDIR PRN PRN Reason: FOR SERUM K+ 2.5 - 3.5 Potassium Chloride (Klor-Con) 40 meq PER TUBE ASDIR PRN PRN Reason: FOR SERUM K+ 2.5-3.5 Propofol (Diprivan) 1,000 mg IV INF PRN; Protocol PRN Reason: TO ACHIEVE GOAL RASS Stop: 03/06/18 19:51 Last Admin: 02/06/18 05:14 Dose: 1,000 mg Propofol (Diprivan Bolus) 20 mg IV Q5MIN PRN PRN Reason: BREAKTHROUGH AGITATION Stop: 03/06/18 19:51 Sodium Chloride (Flush - Normal Saline) 10 ml IVF Q12HR [facility] Last Admin: 02/06/18 08:53 Dose: 10 ml Sodium Chloride (Flush - Normal Saline) 10 ml IVF PRN PRN PRN Reason: Saline Flush
--- NOTE | 2018-02-06 18:30 | EKG ---
Test Reason : SOB Blood Pressure : / mmHG Vent. Rate : 112 BPM Atrial Rate : 112 BPM P-R Int : 118 ms QRS Dur : 096 ms QT Int : 330 ms P-R-T Axes : 026 023 028 degrees QTc Int : 450 ms Sinus tachycardia Otherwise normal ECG Confirmed by MARGY JEAN DO ([id number]), clinical editor PRINCE MARIN ([id number] on 02/06/2018 6:29:31 PM Referred By: MIRANDA Confirmed By:MARGY JEAN DO
[2018-02-07] MEDS: Piperacillin/Tazobactam 3.375 GM in Sodium Chloride 0.9% 100 ML IVPB SCH ×3 (05:00→17:14)
[2018-02-07 05:10] LABS: #Lymphocytes 2.7 thou/uL (1.20-3.40); #Monocytes 0.8 thou/uL (0.11-0.59); #Neutrophils 9.7 thou/uL (1.40-6.50); %Basophils 0.2 % (0.0-1.0); %Eosinophils 0.3 % (0.0-10.0); %Lymphocytes 20.2 % (21.0-51.0); %Monocytes 5.8 % (0.0-10.0); %Neutrophils 73.5 % (42.0-75.0); Hemoglobin 9.9 g/dL (12.0-16.0); Mean Corpuscular HGB CONC 33.6 g/dL (32.0-36.0); Mean Corpuscular Hemoglobin 29.2 pg (27.0-31.0); Mean Corpuscular Volume 86.8 fL (78.0-98.0); Mean Platelet Volume 7.9 fL (7.4-10.4); Platelet Count 251 thou/uL (130-400); RBC Distribution Width 13.6 % (11.5-14.5); Red Blood Cell (RBC) Count 3.39 mill/uL (4.20-5.40); White Blood Cell (WBC) Count 13.2 thou/uL (4.8-10.8)
[2018-02-07 05:24] LABS: Anion Gap 10 mmol/L (10-20); BUN (Urea Nitrogen) 16 mg/dL (7.0-18.7); Calc. Creatinine Clearance 137 mL/min (70-130); Calcium 8.7 mg/dL (7.8-10.44); Carbon Dioxide 29 mmol/L (22-29); Chloride 107 mmol/L (98-107); Estimated GFR-MDRD 76; Glucose 91 mg/dL (70-105); Magnesium 2.1 mg/dL (1.6-2.6); Potassium 3.3 mmol/L (3.5-5.1); Sodium 143 mmol/L (136-145)
[2018-02-07 05:29] LABS: Phosphorus 1.5 mg/dL (2.3-4.7)
[2018-02-07] MEDS ORDERED: Potassium Phosphate 30 MMOL in Sodium Chloride 0.9% 500 ML IVPB SCH (07:00)
[2018-02-07] MEDS: OLANZapine 5 MG TAB PO SCH ×2 (08:23→20:43)
[2018-02-07] MEDS: clonazePAM 1 MG TAB PO SCH ×2 (08:23→20:43)
[2018-02-07] MEDS: Gabapentin 300 MG CAP PO SCH ×3 (08:23→20:40)
[2018-02-07] MEDS: Furosemide 20 MG/2 ML VIAL SLOW IVP SCH (08:24)
[2018-02-07] MEDS: Enoxaparin Sodium 40 MG/0.4 ML SYRINGE SC SCH (08:24)
[2018-02-07] MEDS: Famotidine/PF 20 mg/2ml Vial SLOW IVP SCH ×2 (08:25→20:44)
[2018-02-07] MEDS ORDERED: Potassium Chloride 20 MEQ TAB PO SCH (09:00)
[2018-02-07] MEDS ORDERED: Potassium Phosphate 9 MMOL in Sodium Chloride 0.9% 100 ML IVPB SCH (09:15)
--- NOTE | 2018-02-07 11:21 | RAD ---
CHEST 1 VIEW: HISTORY: Dyspnea. Followup. COMPARISON: 02/06/2018. FINDINGS: Cardiac silhouette is magnified by projection. Pulmonary vasculature is now upper limits of normal. Minimal bilateral perihilar and bibasilar infiltrates. Right pleural fluid no longer visible. Medi astinum is midline. Nasogastric tube and endotracheal catheter are not apparent. Right internal jug ular central venous catheter remains in place. IMPRESSION: 1. Significant interval improvement with resolution of pulmonary edema and pleural fluid. 2. Interval removal of the endotracheal catheter and nasogastric tube. POS: PABLO
--- NOTE | 2018-02-07 14:02 | PDOC.PN ---
- Subjective Encounter Start Date: 02/07/18 Encounter Start Time: 08:40 Pt seen for followup re: acute hypoxic respiratory failure. Pt sleepy but arousable, not answering questions, could not complete ROS. - Objective Resuscitation Status - Order Detail: 02/04/18 19:19 Resuscitation Status Routine Resuscitation Status: FULL: Full Resuscitation Discussed with: confirmed with patient MAR Reviewed: Yes Vital Signs & Weight: Vital Signs (12 hours) Temp Pulse Resp BP BP Pulse Ox 02/07/18 07:42 97.8 F 80 20 127/80 94 L 02/07/18 04:00 97.6 F 78 18 119/81 92 L Weight Admit Weight 225 lb Weight 224 lb 6.889 oz Most Recent Monitor Data Heart Rate from ECG 104 NIBP 156/103 NIBP BP-Mean 120 Respiration from ECG 18 SpO2 94 I&O: 02/06/18 02/07/18 02/08/18 06:59 06:59 06:59 Intake Total 3977.2 1865 Output Total 2185 6310 Balance 1792.2 -4445 Result Diagrams: 02/07/18 04:58 02/07/18 04:58 Additional Labs: Accuchecks 02/07/18 02/07/18 02/06/18 11:30 04:42 20:32 POC Glucose 101 96 141 H 02/06/18 19:10 POC Glucose 281 H labs reviewed by me Phys Exam - Physical Examination Obese HEENT: moist MMs Neck: no nodes Respiratory: clear to auscultation bilateral Cardiovascular: RRR Gastrointestinal: soft Neurological: moves all 4 limbs Deviation from normal: Unable to assess Dx/Plan (1) Acute respiratory failure with hypoxia Code(s): J96.01 - ACUTE RESPIRATORY FAILURE WITH HYPOXIA Status: Acute Comment: extubated yesterday, now on medical floor, improving (2) Pneumonia Code(s): J18.9 - PNEUMONIA, UNSPECIFIED ORGANISM Status: Acute Qualifiers: Pneumonia type: due to unspecified organism Laterality: right Lung location: unspecified part of lung Qualified Code(s): J18.9 - Pneumonia, unspecified organism Comment: continue Zosyn and levofloxacin (3) Diabetes mellitus Code(s): E11.9 - TYPE 2 DIABETES MELLITUS WITHOUT COMPLICATIONS Status: Chronic Qualifiers: Diabetes mellitus type: type 2 Comment: reasonable control (4) Hypertension Code(s): I10 - ESSENTIAL (PRIMARY) HYPERTENSION Status: Chronic Qualifiers: Hypertension type: essential hypertension Qualified Code(s): I10 - Essential (primary) hypertension Comment: controlled (5) Septic shock Code(s): A41.9 - SEPSIS, UNSPECIFIED ORGANISM; R65.21 - SEVERE SEPSIS WITH SEPTIC SHOCK Status: Resolved - Plan * . Review of Systems - Medications/Allergies Allergies/Adverse Reactions: Allergies Allergy/AdvReac Type Severity Reaction Status Date / Time No Known Drug Allergies Allergy Verified 02/07/18 02:44 Medications: Current Medications Acetaminophen (Tylenol) 650 mg MO Q4H PRN PRN Reason: Headache/Fever/Mild Pain (1-3) Albuterol/Ipratropium (Duoneb) 3 ml NEB [id number] PRN PRN Reason: SOB &/or Wheezing Clonazepam (Klonopin) 1 mg PO BID [facility] Last Admin: 02/07/18 08:23 Dose: 1 mg Dextrose/Water (Dextrose 50%) 25 gm SLOW IVP PRN PRN PRN Reason: Hypoglycemia Enoxaparin Sodium (Lovenox) 40 mg SC 0900 [facility] Last Admin: 02/07/18 08:24 Dose: 40 mg Famotidine (Pepcid) 20 mg SLOW IVP Q12HR [facility] Last Admin: 02/07/18 08:25 Dose: 20 mg Furosemide (Lasix) 20 mg SLOW IVP DAILY [facility] Last Admin: 02/07/18 08:24 Dose: 20 mg Gabapentin (Neurontin) 600 mg PO TID [facility] Last Admin: 02/07/18 08:23 Dose: 600 mg Glucagon (Glucagon) 1 mg IM PRN PRN PRN Reason: Hypoglycemia Levofloxacin 750 mg/ Device 150 mls @ 100 mls/hr IVPB Q24HR [facility] Last Admin: 02/06/18 17:01 Dose: 150 mls Norepinephrine Bitartrate (Levophed) 250 mls @ 0 mls/hr IVPB PRN PRN; Protocol PRN Reason: To maintain MAP > 65 Last Admin: 02/05/18 09:57 Dose: 250 mls Piperacillin Sod/Tazobactam (Sod 3.375 gm/ Sodium Chloride) 100 mls @ 200 mls/ hr IVPB Q6HR [facility] Last Admin: 02/07/18 11:31 Dose: 100 mls Dextrose/Water (D5w) 1,000 mls @ 0 mls/hr IV .Q0M PRN PRN Reason: Hypoglycemia Potassium Phosphate 30 mmol/ (Sodium Chloride) 510 mls @ 63.75 mls/hr IVPB NOW [facility] Stop: 02/07/18 14:59 Last Admin: 02/07/18 06:21 Dose: 510 mls Insulin Human Regular (Humulin R) 0 units SC .MILD SLIDING SCALE PRN PRN Reason: Mild Correctional Scale Last Admin: 02/06/18 06:25 Dose: 2 unit Methylprednisolone Sodium Succinate (Solu-Medrol) 40 mg IVP DAILY [facility] Last Admin: 02/07/18 08:25 Dose: 40 mg Olanzapine (Zyprexa) 5 mg PO BID [facility] Last Admin: 02/07/18 08:23 Dose: 5 mg Sodium Chloride (Flush - Normal Saline) 10 ml IVF Q12HR [facility] Last Admin: 02/07/18 08:25 Dose: 10 ml Sodium Chloride (Flush - Normal Saline) 10 ml IVF PRN PRN PRN Reason: Saline Flush
--- NOTE | 2018-02-07 18:34 | PRG ---
DATE OF SERVICE: 02/07/2018 SERVICE: Pulmonary Medicine. INTERVAL HISTORY: The patient is doing fine from respiratory standpoint. She is breathing comfortably. She has been weaned down to room air. She has no complaints of chest pain, nausea, vomiting, fevers, or chills. She was sleeping comfortably until I woke her up. She was fully awake, attended. She did not fall back asleep. PHYSICAL EXAMINATION: VITAL SIGNS: Afebrile, pulse 80, blood pressure 127/80, respirations 20, and saturation 94% on room air. GENERAL: Patient is awake and alert. No apparent distress. LUNGS: Decent air entry. No prolonged expiratory phase present. Rhonchi present, but clear with cough. Dependent crackles are noted. HEART: Normal rate regular. ABDOMEN: Soft, nontender, and nondistended. Bowel sounds are positive. MUSCULOSKELETAL: No cyanosis or clubbing. There is no pitting in the bilateral lower extremities. NEUROLOGIC: Grossly nonfocal. LABORATORY DATA: WBC 13.2, hemoglobin 9.9, and platelets 251,000. Potassium 3.3, phosphorus 1.5. Magnesium 2.1. Urine drug screen, and vancomycin are unremarkable. Influenza A and B, blood culture x2 are negative. IMAGING: Chest x-ray demonstrates significant interval improvement with resolution of the pulmonary edema and pleural fluid. Interval removal of endotracheal tube. Right IJ central venous catheter terminates in decent position. ASSESSMENT: 1. Acute hypoxic respiratory failure. 2. Community-acquired pneumonia. 3. Pleural effusion, getting smaller. 4. History of alcohol abuse, and polysubstance drug abuse. DISCUSSION AND PLAN: We will continue to diurese the patient until she returns to euvolemic, which is fast approaching. We will continue our empiric antibiotics and other supportive care. We will work on mobilizing the patient through time. Pulmonary Critical Care will continue to follow along for the time being. Job ID: [id number]
[2018-02-08] MEDS: Piperacillin/Tazobactam 3.375 GM in Sodium Chloride 0.9% 100 ML IVPB SCH ×3 (01:00→11:54)
[2018-02-08] MEDS: Piperacillin/Tazobactam 3.375 GM VIAL ONE ×2 (01:34→01:48)
[2018-02-08 06:56] LABS: #Eosinphils 0.1 thou/uL (0.0-0.7); #Lymphocytes 3.3 thou/uL (1.20-3.40); #Monocytes 0.9 thou/uL (0.11-0.59); #Neutrophils 8.2 thou/uL (1.40-6.50); %Basophils 0.3 % (0.0-1.0); %Eosinophils 0.8 % (0.0-10.0); %Lymphocytes 26.6 % (21.0-51.0); %Monocytes 6.8 % (0.0-10.0); %Neutrophils 65.5 % (42.0-75.0); Hemoglobin 10.8 g/dL (12.0-16.0); Mean Corpuscular HGB CONC 33.1 g/dL (32.0-36.0); Mean Corpuscular Hemoglobin 28.6 pg (27.0-31.0); Mean Corpuscular Volume 86.6 fL (78.0-98.0); Mean Platelet Volume 7.9 fL (7.4-10.4); Platelet Count 265 thou/uL (130-400); RBC Distribution Width 13.7 % (11.5-14.5); Red Blood Cell (RBC) Count 3.76 mill/uL (4.20-5.40); White Blood Cell (WBC) Count 12.5 thou/uL (4.8-10.8)
[2018-02-08 07:13] LABS: Anion Gap 14 mmol/L (10-20); BUN (Urea Nitrogen) 18 mg/dL (7.0-18.7); Calc. Creatinine Clearance 138 mL/min (70-130); Carbon Dioxide 23 mmol/L (22-29); Chloride 109 mmol/L (98-107); Estimated GFR-MDRD 77; Glucose 115 mg/dL (70-105); Magnesium 1.9 mg/dL (1.6-2.6); Potassium 3.8 mmol/L (3.5-5.1); Sodium 142 mmol/L (136-145)
[2018-02-08 07:21] LABS: Phosphorus 3.5 mg/dL (2.3-4.7)
[2018-02-08] MEDS: clonazePAM 1 MG TAB PO SCH ×2 (08:12→19:59)
[2018-02-08] MEDS: Gabapentin 300 MG CAP PO SCH ×3 (08:12→19:59)
[2018-02-08] MEDS: Famotidine/PF 20 mg/2ml Vial SLOW IVP SCH ×2 (08:12→19:59)
[2018-02-08] MEDS: Furosemide 20 MG/2 ML VIAL SLOW IVP SCH (08:12)
[2018-02-08] MEDS: Enoxaparin Sodium 40 MG/0.4 ML SYRINGE SC SCH (08:12)
[2018-02-08] MEDS: OLANZapine 5 MG TAB PO SCH ×2 (08:13→19:59)
--- NOTE | 2018-02-08 15:08 | PRG ---
DATE OF SERVICE: 02/08/2018 SUBJECTIVE: This patient has been up and around and going downstairs to smoke. She has no complaints at the current time. OBJECTIVE: VITAL SIGNS: Temperature is 99.1, pulse 88, respirations 18, O2 saturation 93% on room air, blood pressure 135/84. HEENT: Unremarkable. NECK: No JVD. LUNGS: Clear without wheezing or rhonchi. CARDIAC: S1 and S2 regular. ABDOMEN: Soft. EXTREMITIES: No edema. LABORATORY DATA: White blood cell count 12.5, hematocrit 32.6, and platelet count 265. Sodium 142, potassium 3.8, BUN 18, creatinine 0.7, glucose 115. ASSESSMENT: 1. Acute hypoxic respiratory failure. 2. Community-acquired pneumonia. 3. Pleural effusion. PLAN: The patient appears stable at this time. She can be changed to oral antibiotics and discharge plan can begin. Job ID: [id number]
[2018-02-08 15:50] VITALS: BMI 36.1
--- NOTE | 2018-02-08 17:49 | PDOC.PN ---
- Subjective Encounter Start Date: 02/08/18 Encounter Start Time: 09:20 Pt seen for followup re: pneumonia. Feels better. Cough+. - Objective Resuscitation Status - Order Detail: 02/04/18 19:19 Resuscitation Status Routine Resuscitation Status: FULL: Full Resuscitation Discussed with: confirmed with patient MAR Reviewed: Yes Vital Signs & Weight: Vital Signs (12 hours) Temp Pulse Resp BP Pulse Ox 02/08/18 08:00 93 L 02/08/18 07:52 99.1 F 88 18 135/84 90 L Weight Admit Weight 225 lb Weight 223 lb 8.78 oz Most Recent Monitor Data Heart Rate from ECG 104 NIBP 156/103 NIBP BP-Mean 120 Respiration from ECG 18 SpO2 94 I&O: 02/07/18 02/08/18 02/09/18 06:59 06:59 06:59 Intake Total 1865 680 600 Output Total 6310 Balance -4445 680 600 Result Diagrams: 02/08/18 06:23 02/08/18 06:23 Additional Labs: Accuchecks 02/08/18 02/08/18 02/08/18 17:05 11:36 06:16 POC Glucose 166 H 174 H 128 H 02/07/18 19:25 POC Glucose 103 labs reviewed by me Phys Exam - Physical Examination Constitutional: NAD HEENT: moist MMs Neck: supple Respiratory: wheezing present Cardiovascular: RRR Gastrointestinal: soft Neurological: moves all 4 limbs Psychiatric: normal affect Dx/Plan (1) Pneumonia Code(s): J18.9 - PNEUMONIA, UNSPECIFIED ORGANISM Status: Acute Qualifiers: Pneumonia type: due to unspecified organism Laterality: right Lung location: unspecified part of lung Qualified Code(s): J18.9 - Pneumonia, unspecified organism Comment: started on cefdinir (2) Diabetes mellitus Code(s): E11.9 - TYPE 2 DIABETES MELLITUS WITHOUT COMPLICATIONS Status: Chronic Qualifiers: Diabetes mellitus type: type 2 Comment: reasonably controlled (3) Hypertension Code(s): I10 - ESSENTIAL (PRIMARY) HYPERTENSION Status: Chronic Qualifiers: Hypertension type: essential hypertension Qualified Code(s): I10 - Essential (primary) hypertension Comment: controlled (4) Septic shock Code(s): A41.9 - SEPSIS, UNSPECIFIED ORGANISM; R65.21 - SEVERE SEPSIS WITH SEPTIC SHOCK Status: Resolved (5) Acute respiratory failure with hypoxia Code(s): J96.01 - ACUTE RESPIRATORY FAILURE WITH HYPOXIA Status: Resolved - Plan * . Review of Systems - Review of Systems Respiratory: Cough, Sputum. negative: Dry, Shortness of Breath, Hemoptysis, SOB with Excertion, Pleuritic Pain, Wheezing Cardiovascular: negative: chest pain, palpitations, orthopnea, paroxysmal nocturnal dyspnea, edema, light headedness - Medications/Allergies Allergies/Adverse Reactions: Allergies Allergy/AdvReac Type Severity Reaction Status Date / Time No Known Drug Allergies Allergy Verified 02/07/18 02:44 Medications: Current Medications Acetaminophen (Tylenol) 650 mg MN Q4H PRN PRN Reason: Headache/Fever/Mild Pain (1-3) Albuterol/Ipratropium (Duoneb) 3 ml NEB [id number] PRN PRN Reason: SOB &/or Wheezing Cefdinir (Omnicef) 600 mg PO DAILY [facility] Clonazepam (Klonopin) 1 mg PO BID [facility] Last Admin: 02/08/18 08:12 Dose: 1 mg Dextrose/Water (Dextrose 50%) 25 gm SLOW IVP PRN PRN PRN Reason: Hypoglycemia Enoxaparin Sodium (Lovenox) 40 mg SC 0900 [facility] Last Admin: 02/08/18 08:12 Dose: 40 mg Famotidine (Pepcid) 20 mg SLOW IVP Q12HR [facility] Last Admin: 02/08/18 08:12 Dose: 20 mg Furosemide (Lasix) 20 mg SLOW IVP DAILY [facility] Last Admin: 02/08/18 08:12 Dose: 20 mg Gabapentin (Neurontin) 600 mg PO TID [facility] Last Admin: 02/08/18 14:42 Dose: 600 mg Glucagon (Glucagon) 1 mg IM PRN PRN PRN Reason: Hypoglycemia Norepinephrine Bitartrate (Levophed) 250 mls @ 0 mls/hr IVPB PRN PRN; Protocol PRN Reason: To maintain MAP > 65 Last Admin: 02/05/18 09:57 Dose: 250 mls Dextrose/Water (D5w) 1,000 mls @ 0 mls/hr IV .Q0M PRN PRN Reason: Hypoglycemia Insulin Human Regular (Humulin R) 0 units SC .MILD SLIDING SCALE PRN PRN Reason: Mild Correctional Scale Last Admin: 02/06/18 06:25 Dose: 2 unit Levofloxacin (Levaquin) 750 mg PO 1700 [facility] Last Admin: 02/08/18 17:01 Dose: 750 mg Olanzapine (Zyprexa) 5 mg PO BID [facility] Last Admin: 02/08/18 08:13 Dose: 5 mg Prednisone (Prednisone) 40 mg PO DAILY [facility] Sodium Chloride (Flush - Normal Saline) 10 ml IVF Q12HR [facility] Last Admin: 02/08/18 08:13 Dose: 10 ml Sodium Chloride (Flush - Normal Saline) 10 ml IVF PRN PRN PRN Reason: Saline Flush
[2018-02-09 06:48] LABS: #Eosinphils 0.1 thou/uL (0.0-0.7); #Lymphocytes 3.9 thou/uL (1.20-3.40); #Monocytes 0.7 thou/uL (0.11-0.59); #Neutrophils 10.5 thou/uL (1.40-6.50); %Basophils 0.2 % (0.0-1.0); %Eosinophils 0.9 % (0.0-10.0); %Lymphocytes 25.2 % (21.0-51.0); %Monocytes 4.8 % (0.0-10.0); %Neutrophils 68.9 % (42.0-75.0); Hemoglobin 11.4 g/dL (12.0-16.0); Mean Corpuscular HGB CONC 32.9 g/dL (32.0-36.0); Mean Corpuscular Hemoglobin 28.4 pg (27.0-31.0); Mean Corpuscular Volume 86.4 fL (78.0-98.0); Mean Platelet Volume 7.8 fL (7.4-10.4); Platelet Count 318 thou/uL (130-400); RBC Distribution Width 13.7 % (11.5-14.5); Red Blood Cell (RBC) Count 4.02 mill/uL (4.20-5.40); White Blood Cell (WBC) Count 15.3 thou/uL (4.8-10.8)
[2018-02-09 06:55] LABS: Phosphorus 3.2 mg/dL (2.3-4.7)
[2018-02-09 06:57] LABS: Anion Gap 13 mmol/L (10-20); BUN (Urea Nitrogen) 31 mg/dL (7.0-18.7); Calc. Creatinine Clearance 128 mL/min (70-130); Calcium 9.7 mg/dL (7.8-10.44); Carbon Dioxide 29 mmol/L (22-29); Chloride 99 mmol/L (98-107); Estimated GFR-MDRD 71; Glucose 131 mg/dL (70-105); Magnesium 2.1 mg/dL (1.6-2.6); Sodium 137 mmol/L (136-145)
[2018-02-09 08:03] VITALS: BP 134/88; TEMP 97.4
[2018-02-09] MEDS: Gabapentin 300 MG CAP PO SCH (08:25)
[2018-02-09] MEDS: Enoxaparin Sodium 40 MG/0.4 ML SYRINGE SC SCH (08:26)
[2018-02-09] MEDS: OLANZapine 5 MG TAB PO SCH (08:26)
[2018-02-09] MEDS: Famotidine/PF 20 mg/2ml Vial SLOW IVP SCH (08:26)
[2018-02-09] MEDS: clonazePAM 1 MG TAB PO SCH (08:26)
[2018-02-09] MEDS: Furosemide 20 MG/2 ML VIAL SLOW IVP SCH (08:26)
[2018-02-09] MEDS ORDERED: predniSONE 20 MG TAB PO SCH (09:00)
[2018-02-09] MEDS ORDERED: Cefdinir 300 MG CAP PO SCH (09:00)
--- NOTE | 2018-02-09 11:51 | DIS ---
DATE OF ADMISSION: 02/04/2018 DATE OF DISCHARGE: 02/09/2018 PRIMARY CARE PROVIDER: Dr. Tyler Cheatham in [place], [place]. DISCHARGE DIAGNOSES: 1. Acute hypoxic respiratory failure. 2. Pneumonia. 3. Septic shock. CONDITION OF PATIENT ON THE DAY OF DISCHARGE: Stable. I assessed Ms. Lam on the day of discharge. She denies any chest pain or shortness of breath. Vital signs are stable. S1 and S2 are heard, regular. Lungs are clear to auscultation bilaterally. CONSULTATIONS DURING THIS HOSPITALIZATION: Pulmonology, Dr. Milton. DISCHARGE MEDICATIONS: 1. Amlodipine 5 mg two times a day. 2. Clonazepam 1 mg two times a day. 3. Gabapentin 600 mg three times a day. 4. Losartan 100 mg daily. 5. Olanzapine 5 mg two times a day. 6. Omeprazole 40 mg daily. 7. Tramadol 50 mg three times a day. 8. Cefdinir 600 mg daily for nine days. 9. Levofloxacin 750 mg daily for five days. 10. Prednisone taper. HOSPITAL COURSE: Ms. Lam is a pleasant 47-year-old lady, who was admitted to [facility] on February 04, 2018 for acute hypoxic respiratory failure. Please refer to Dr. Case's history and physical note dated on February 04, 2018 for further details. She was intubated, admitted to Critical Care Unit for mechanical ventilation. Pulmonology Service was consulted. CT angiogram of the chest did not show any evidence of pulmonary thromboembolism. She had multifocal right-sided pneumonia. She was treated with broad-spectrum antibiotics. She was extubated on February 06, 2018 and was subsequently moved to the medical floor. She continued to improve clinically and is being discharged to home in a stable condition. She has been advised to stop smoking. On the day of discharge; she has sodium 137, potassium 4.0, creatinine 0.85. White count 15,300, hemoglobin 11.4, and platelet count 318,000. During this hospitalization, she had a normal T4 level of 5.3. BNP level was mildly elevated at 139.6. Many thanks for allowing me to participate in your patient's care. Please feel free to contact me with any questions or concerns. DISCHARGE DESTINATION: Home. TOTAL AMOUNT OF TIME SPENT COORDINATING THIS DISCHARGE: 33 minutes. Job ID: [id number]
--- NOTE | 2018-02-09 13:13 | PRG ---
DATE OF SERVICE: 02/09/2018 SUBJECTIVE: This morning, she is awake, alert, and responsive. She is extubated. OBJECTIVE: VITAL SIGNS: Sats are 98% on 2 L, temperature 97, pulse 86, blood pressure 130/88. CHEST: Decreased breath sounds, no wheezing. CARDIAC: Normal S1, S2. No gallops. ABDOMEN: No masses. LABORATORY DATA: White count 15,000, H and H 11 and 34. Lytes are normal. IMPRESSION: Bronchopneumonia, much improved. She is on Omnicef, Levaquin, low-dose prednisone, all to continue for about a week. Follow up with primary care physician. Job ID: [id number]
== END 2018-02-09 13:00 | disposition home or self-care (01) | DRG 871 ==
LOC: ERS 15:14 → ERHOLD 18:30 → CCU 19:45 → T4-A 02-06 20:14
PROVIDERS: ADMIT Family Medicine; ATTEND Family Medicine
PROC: 5A1945Z Respiratory Ventilation, 24-96 Consecutive Hours (ICD-10-PCS; principal; 2018-02-04)
PROC: 3E0G76Z Introduction of Nutritional Substance into Upper GI, Via Natural or Artificial Opening (ICD-10-PCS; 2018-02-06)
DX: A41.9 Sepsis, unspecified organism (principal); J18.9 Pneumonia, unspecified organism; R65.21 Severe sepsis with septic shock; J96.01 Acute respiratory failure with hypoxia; J90 Pleural effusion, not elsewhere classified; I10 Essential (primary) hypertension; M79.7 Fibromyalgia; I95.9 Hypotension, unspecified; F25.0 Schizoaffective disorder, bipolar type; J45.909 Unspecified asthma, uncomplicated; Z59.0 Homelessness; E11.9 Type 2 diabetes mellitus without complications; F15.90 Other stimulant use, unspecified, uncomplicated; Z72.89 Other problems related to lifestyle; Z23 Encounter for immunization
CPT/HCPCS: 31500; 36415; 36416; 36556; 51702; 70450; 71045; 71275; 74018; 80048; 80053; 80202; 80306; 81003; 81015; 82805; 83605; 83735; 83880; 84100; 84436; 84484; 85025; 87040; 87804; 93005; 94002; 94003; 96361; 96365; 96366; 96367; 96368; 96375; 99406; A4353; G8978-GP-CN; G8979-GP-CJ; J1630; J1650; J1940; J1956; J2060; J2250; J2270; J2543; J2704; J2920; J3010; J3370; J7050; J7506; S0028